=== PATIENT | male | born 1970 | race Caucasian/White ===

== ENCOUNTER → 2020-03-16 | Outpatient (CLI) | payer BC | LOC: RAD 14:21 → EDBD 14:21 | DX: M43.27 Fusion of spine, lumbosacral region (principal); M41.86 Other forms of scoliosis, lumbar region ==

== ENCOUNTER → 2020-07-01 | Outpatient (CLI) | payer BC | LOC: RAD 14:58 | DX: M41.86 Other forms of scoliosis, lumbar region (principal); M43.27 Fusion of spine, lumbosacral region ==

== ENCOUNTER → 2020-08-12 | Outpatient (CLI) | payer BC | LOC: MRI 13:03 | DX: M43.26 Fusion of spine, lumbar region (principal); M79.605 Pain in left leg; R20.0 Anesthesia of skin; R20.2 Paresthesia of skin; Z98.890 Other specified postprocedural states ==